=== PATIENT | male | born 1940 | race Caucasian/White ===

== ENCOUNTER 2016-11-23 23:02 | Emergency (ER) | payer OTHER ==
[~2016-11-23 23:02] MED LIST: Sodium Chloride 0.9% 100 ML BAG ONE
[2016-11-23] MEDS ORDERED: Ondansetron HCl/PF 4 MG/2 ML Vial ONE (23:32)
[2016-11-23 23:42] LABS: #Basophils 0.1 thou/uL (0.0-0.2); #Eosinphils 0.1 thou/uL (0.0-0.7); #Lymphocytes 1.1 thou/uL (1.20-3.40); #Monocytes 0.5 thou/uL (0.11-0.59); #Neutrophils 2.7 thou/uL (1.40-6.50); %Eosinophils 2.5 % (0.0-10.0); %Lymphocytes 24.7 % (21.0-51.0); %Monocytes 10.6 % (0.0-10.0); %Neutrophils 60.2 % (42.0-75.0); Hemoglobin 13.6 g/dL (14.0-18.0); Mean Corpuscular HGB CONC 35.2 g/dL (32.0-36.0); Mean Corpuscular Hemoglobin 30.1 pg (27.0-31.0); Mean Corpuscular Volume 85.7 fl (80.0-94.0); Mean Platelet Volume 9.7 fL (7.4-10.4); Platelet Count 126 thou/uL (130-400); RBC Distribution Width 11.9 % (11.5-14.5); White Blood Cell (WBC) Count 4.5 thou/uL (4.8-10.8)
[2016-11-23 23:48] LABS: INR-International Normal Ratio 2.3; PTT 38.3 SEC (22.9-36.1); Prothrombin Time 24.9 SEC (12.0-14.7)
--- NOTE | 2016-11-23 23:49 | RAD ---
CHEST ONE VIEW 11/23/16 HISTORY: Dyspnea. FINDINGS: No comparison. The cardiac silhouette is magnified and partially obscured by an elevated right hemidiaphragm and pa tchy infiltrate at the right lung base. Pulmonary vasculature is unremarkable. Mediastinum remains m idline with postoperative changes apparent. IMPRESSION: Right hemidiaphragm elevation with mild atelectasis or infiltrate at the right lung base. The appear ance is similar to the prior CT from 11/07/16. Clinical correlation regarding other signs and symptom s of right basilar pneumonitis is required. POS: [facility]
[2016-11-23 23:57] LABS: Troponin I 0.014 ng/mL (< 0.028)
[2016-11-23 23:58] LABS: ALT (SGPT) 24 U/L (0-55); AST (SGOT) 22 U/L (5-34); Albumin 3.8 g/dL (3.4-4.8); Alkaline Phosphatase 113 U/L (40-150); Anion Gap 14 mmol/L (10-20); BUN (Urea Nitrogen) 16 mg/dL (8.4-25.7); Bilirubin, Total 1.2 mg/dL (0.2-1.2); CK (CPK) 96 U/L (30-200); Calc. Creatinine Clearance 0 mL/min (70-130); Calcium 8.8 mg/dL (7.8-10.44); Carbon Dioxide 28 mmol/L (23-31); Chloride 103 mmol/L (98-107); Estimated GFR-MDRD Greater than 90; Globulin 2.5 g/dL (2.4-3.5); Glucose 109 mg/dL (83-110); Magnesium 2.1 mg/dL (1.6-2.6); Potassium 3.8 mmol/L (3.5-5.1); Protein, Total 6.3 g/dL (5.8-8.1); Sodium 141 mmol/L (136-145)
[2016-11-24] MEDS ORDERED: Doxycycline Hyclate 100 MG TAB ONE (00:22)
[2016-11-24] MEDS ORDERED: Doxycycline 100 MG CAP ONE (00:22)
[2016-11-24] MEDS ORDERED: cefTRIAXone\\ROCEPHIN 1 GM VIAL ONE (00:23)
[2016-11-24] MEDS ORDERED: Clindamycin 150 MG CAP ONE (00:23)
[2016-11-24] MEDS ORDERED: Benzonatate 100 MG CAP ONE (01:14)
== END 2016-11-24 01:30 | disposition home or self-care (01) ==
LOC: MADERS 23:02
DX: J18.9 Pneumonia, unspecified organism (principal); J44.9 Chronic obstructive pulmonary disease, unspecified; E78.00 Pure hypercholesterolemia, unspecified; I10 Essential (primary) hypertension; Z87.891 Personal history of nicotine dependence; Z95.2 Presence of prosthetic heart valve; Z79.01 Long term (current) use of anticoagulants; Z79.899 Other long term (current) drug therapy
CPT/HCPCS: 36415; 71010; 80053; 82550; 82553; 83735; 83880; 84484; 85025; 85610; 85730; 87040; 93005; 94640; 94760; 96365; 96375; J0696; J2405; J7050; J7620

== ENCOUNTER 2016-12-20 15:51 | Outpatient (CLI) | payer MEDICARE, OTHER ==
[2016-12-20 16:14] LABS: #Eosinphils 0.1 thou/uL (0.0-0.7); #Lymphocytes 0.9 thou/uL (1.20-3.40); #Monocytes 0.3 thou/uL (0.11-0.59); #Neutrophils 2.4 thou/uL (1.40-6.50); %Basophils 1.1 % (0.0-1.0); %Eosinophils 2.8 % (0.0-10.0); %Lymphocytes 24.3 % (21.0-51.0); %Monocytes 7.5 % (0.0-10.0); %Neutrophils 64.4 % (42.0-75.0); Hemoglobin 14.3 g/dL (14.0-18.0); Mean Corpuscular HGB CONC 34.8 g/dL (32.0-36.0); Mean Corpuscular Hemoglobin 30.4 pg (27.0-31.0); Mean Corpuscular Volume 87.2 fl (80.0-94.0); Mean Platelet Volume 9.6 fL (7.4-10.4); Platelet Count 126 thou/uL (130-400); RBC Distribution Width 12.3 % (11.5-14.5); Red Blood Cell (RBC) Count 4.72 mill/uL (4.70-6.10); White Blood Cell (WBC) Count 3.7 thou/uL (4.8-10.8)
[2016-12-20 16:21] LABS: INR-International Normal Ratio 1.1
[2016-12-20 16:22] LABS: PTT 40.7 SEC (22.9-36.1)
[2016-12-20 16:27] LABS: Bilirubin Negative (Negative); Blood, Urine Moderate (Negative); Clarity Cloudy (Clear); Glucose, Urine (Dipstick) Negative (Negative); Leukocyte Negative (Negative); Nitrite Negative (Negative); Protein, Urine (Dipstick) 30 mg/dL (Neg-Trace); Urobilinogen 0.2 mg/dL (0.2-1.0)
[2016-12-20 16:28] LABS: RBC/HPF GREATER THAN 50-TNTC HPF (0-3)
[2016-12-20 16:30] LABS: Bacteria/HPF Rare-Few HPF (None Seen); Squamous Epithelial 0-3 HPF (0-3)
== END 2016-12-20 15:52 | disposition home or self-care (01) ==
LOC: MADLABBHPM 15:51
PROVIDERS: ATTEND Family Medicine
DX: R31.9 Hematuria, unspecified (principal); Z95.2 Presence of prosthetic heart valve; Z79.01 Long term (current) use of anticoagulants
CPT/HCPCS: 36415; 81001; 85025; 85610; 85730; 87086

== ENCOUNTER 2016-12-27 08:56 | Outpatient (CLI) | payer MEDICARE, OTHER ==
[2016-12-27 09:21] LABS: INR-International Normal Ratio 1.2
== END 2016-12-27 08:57 ==
LOC: MADLABBHPM 08:56
PROVIDERS: ATTEND Family Medicine
DX: Z51.81 Encounter for therapeutic drug level monitoring (principal); Z79.01 Long term (current) use of anticoagulants
CPT/HCPCS: 36415; 85610

== ENCOUNTER 2017-01-04 06:27 | Outpatient (CLI) | payer OTHER ==
[2017-01-04 07:14] LABS: INR-International Normal Ratio 1.7; Prothrombin Time 19.8 SEC (12.0-14.7)
== END 2017-01-04 06:28 ==
LOC: MADLABBHPM 06:27
PROVIDERS: ATTEND Family Medicine
DX: Z51.81 Encounter for therapeutic drug level monitoring (principal); Z79.01 Long term (current) use of anticoagulants
CPT/HCPCS: 36415; 85610

== ENCOUNTER 2017-01-11 16:01 | Outpatient (CLI) | payer OTHER ==
[2017-01-11 16:22] LABS: INR-International Normal Ratio 1.5
== END 2017-01-11 16:02 | disposition home or self-care (01) ==
LOC: MADLABBHPM 16:01
PROVIDERS: ATTEND Family Medicine
DX: Z51.81 Encounter for therapeutic drug level monitoring (principal); Z79.01 Long term (current) use of anticoagulants
CPT/HCPCS: 36415; 85610

== ENCOUNTER 2017-01-25 07:20 | Emergency (ER) | payer OTHER ==
[~2017-01-25 07:20] MED LIST changes: +Sodium Chloride 0.9% 1,000 ML BAG ONE; -Sodium Chloride 0.9% 100 ML BAG ONE; +Sterile Water Irrigation 1,000 ML BOT ONE
[2017-01-25 08:18] LABS: #Eosinphils 0.1 thou/uL (0.0-0.7); #Monocytes 0.4 thou/uL (0.11-0.59); #Neutrophils 4.1 thou/uL (1.40-6.50); %Basophils 0.9 % (0.0-1.0); %Eosinophils 2.6 % (0.0-10.0); %Lymphocytes 17.7 % (21.0-51.0); %Monocytes 6.7 % (0.0-10.0); %Neutrophils 72.2 % (42.0-75.0); Hemoglobin 13.4 g/dL (14.0-18.0); Mean Corpuscular HGB CONC 33.4 g/dL (32.0-36.0); Mean Corpuscular Hemoglobin 29.8 pg (27.0-31.0); Mean Corpuscular Volume 89.3 fl (80.0-94.0); Mean Platelet Volume 9.1 fL (7.4-10.4); Platelet Count 132 thou/uL (130-400); White Blood Cell (WBC) Count 5.6 thou/uL (4.8-10.8)
[2017-01-25 08:22] LABS: PTT 40.4 SEC (22.9-36.1); Prothrombin Time 13.6 SEC (12.0-14.7)
[2017-01-25 08:29] LABS: Anion Gap 13 mmol/L (10-20); BUN (Urea Nitrogen) 13 mg/dL (8.4-25.7); Calc. Creatinine Clearance 0 mL/min (70-130); Calcium 8.5 mg/dL (7.8-10.44); Carbon Dioxide 26 mmol/L (23-31); Chloride 105 mmol/L (98-107); Estimated GFR-MDRD Greater than 90; Glucose 94 mg/dL (83-110); Potassium 3.8 mmol/L (3.5-5.1); Sodium 140 mmol/L (136-145)
[2017-01-25 08:57] LABS: CKMB 3.3 ng/mL (0-6.6); Troponin I Less than 0.010 ng/mL (< 0.028)
== END 2017-01-25 09:45 | disposition short-term general hospital (02) ==
LOC: MADERS 07:20
DX: R31.0 Gross hematuria (principal); R55 Syncope and collapse; R00.1 Bradycardia, unspecified; I25.10 Atherosclerotic heart disease of native coronary artery without angina pectoris; I10 Essential (primary) hypertension; J44.9 Chronic obstructive pulmonary disease, unspecified; E78.00 Pure hypercholesterolemia, unspecified; Z87.891 Personal history of nicotine dependence; Z79.899 Other long term (current) drug therapy
CPT/HCPCS: 80048; 82550; 82553; 84484; 85025; 85610; 85730; 93005; A4217; J7050

== ENCOUNTER 2017-02-04 06:18 | Emergency (ER) | payer OTHER ==
[2017-02-04 07:24] LABS: Bilirubin Negative (Negative); Blood, Urine Moderate (Negative); Glucose, Urine (Dipstick) Negative (Negative); Leukocyte Negative (Negative); Nitrite Negative (Negative); Protein, Urine (Dipstick) 100 mg/dL (Neg-Trace); Specific Gravity, Urine 1.025 (1.005-1.030); Urobilinogen 0.2 mg/dL (0.2-1.0)
[2017-02-04 07:31] LABS: Clarity Turbid (Clear)
[2017-02-04 07:32] LABS: Bacteria/HPF 1+ HPF (None Seen); RBC/HPF GREATER THAN 50-TNTC HPF (0-3)
[2017-02-04 08:13] LABS: #Lymphocytes 0.5 thou/uL (1.20-3.40); #Monocytes 0.2 thou/uL (0.11-0.59); #Neutrophils 2.8 thou/uL (1.40-6.50); %Basophils 1.1 % (0.0-1.0); %Eosinophils 1.2 % (0.0-10.0); %Lymphocytes 15.1 % (21.0-51.0); %Monocytes 5.1 % (0.0-10.0); %Neutrophils 77.6 % (42.0-75.0); Hemoglobin 11.6 g/dL (14.0-18.0); Mean Corpuscular HGB CONC 34.4 g/dL (32.0-36.0); Mean Corpuscular Volume 87.3 fl (80.0-94.0); Mean Platelet Volume 8.5 fL (7.4-10.4); Platelet Count 132 thou/uL (130-400); RBC Distribution Width 11.6 % (11.5-14.5); Red Blood Cell (RBC) Count 3.88 mill/uL (4.70-6.10); White Blood Cell (WBC) Count 3.6 thou/uL (4.8-10.8)
[2017-02-04] MEDS ORDERED: Amoxicillin/Potassium Clav 875 MG TAB ONE (08:27)
== END 2017-02-04 08:33 | disposition home or self-care (01) ==
LOC: MADERS 06:18
DX: N39.0 Urinary tract infection, site not specified (principal); R31.9 Hematuria, unspecified; I10 Essential (primary) hypertension; E78.00 Pure hypercholesterolemia, unspecified; J44.9 Chronic obstructive pulmonary disease, unspecified; Z87.891 Personal history of nicotine dependence
CPT/HCPCS: 36415; 81003; 81015; 85025; 87086; 99283

== ENCOUNTER 2017-02-05 08:23 | Emergency (ER) | payer OTHER ==
[2017-02-05] MEDS ORDERED: Lidocaine 2% Jelly 5 ML TUBE ONE (09:19)
[2017-02-05 09:59] LABS: Bilirubin Negative (Negative); Blood, Urine Large (Negative); Clarity Turbid (Clear); Glucose, Urine (Dipstick) Negative (Negative); Leukocyte Negative (Negative); Nitrite Negative (Negative); Protein, Urine (Dipstick) > or equal to 300 mg/dL (Neg-Trace); Specific Gravity, Urine 1.025 (1.005-1.030); Urobilinogen 0.2 mg/dL (0.2-1.0)
[2017-02-05 10:07] LABS: Bacteria/HPF 2+ HPF (None Seen); RBC/HPF GREATER THAN 50-TNTC HPF (0-3); Renal Epithelial 0-3 HPF (0-3); Transitional Epithelial 0-3 HPF (0-3); WBC/HPF 21-50 HPF (0-3)
== END 2017-02-05 10:05 | disposition home or self-care (01) ==
LOC: MADERS 08:23
DX: R33.9 Retention of urine, unspecified (principal); I10 Essential (primary) hypertension; I25.10 Atherosclerotic heart disease of native coronary artery without angina pectoris; J44.9 Chronic obstructive pulmonary disease, unspecified; E78.00 Pure hypercholesterolemia, unspecified; Z87.891 Personal history of nicotine dependence; Z79.2 Long term (current) use of antibiotics; Z79.899 Other long term (current) drug therapy
CPT/HCPCS: 51703; 81001; 87086

== ENCOUNTER 2017-02-20 06:02 | Outpatient (CLI) | payer OTHER ==
[2017-02-20 07:02] LABS: INR-International Normal Ratio 2.5; Prothrombin Time 26.8 SEC (12.0-14.7)
[2017-02-20 10:41] LABS: PTT 49.9 SEC (22.9-36.1)
[2017-02-20 10:53] LABS: #Lymphocytes 0.4 thou/uL (1.20-3.40); #Monocytes 0.3 thou/uL (0.11-0.59); %Eosinophils 0.5 % (0.0-10.0); %Lymphocytes 9.3 % (21.0-51.0); %Monocytes 5.7 % (0.0-10.0); %Neutrophils 83.6 % (42.0-75.0); Hemoglobin 9.6 g/dL (14.0-18.0); Mean Corpuscular HGB CONC 33.4 g/dL (32.0-36.0); Mean Corpuscular Hemoglobin 28.6 pg (27.0-31.0); Mean Corpuscular Volume 85.8 fl (80.0-94.0); Mean Platelet Volume 8.1 fL (7.4-10.4); Platelet Count 165 thou/uL (130-400); RBC Distribution Width 12.3 % (11.5-14.5); Red Blood Cell (RBC) Count 3.36 mill/uL (4.70-6.10); White Blood Cell (WBC) Count 4.7 thou/uL (4.8-10.8)
== END 2017-02-20 06:03 | disposition home or self-care (01) ==
LOC: MADLAB 06:02
PROVIDERS: ATTEND Family Medicine
DX: Z51.81 Encounter for therapeutic drug level monitoring (principal); Z79.01 Long term (current) use of anticoagulants
CPT/HCPCS: 36415; 84153; 85025; 85610; 85730

== ENCOUNTER 2017-02-27 06:02 | Outpatient (CLI) | payer OTHER ==
[2017-02-27 09:07] LABS: INR-International Normal Ratio 4.5; PTT 48.5 SEC (22.9-36.1)
== END 2017-02-27 06:03 ==
LOC: MADLABBHPM 06:02
PROVIDERS: ATTEND Family Medicine
DX: Z51.81 Encounter for therapeutic drug level monitoring (principal); Z79.01 Long term (current) use of anticoagulants
CPT/HCPCS: 85610; 85730

== ENCOUNTER 2017-03-02 10:55 | Outpatient (CLI) | payer OTHER ==
[2017-03-02 11:24] LABS: INR-International Normal Ratio 1.5; Prothrombin Time 18.1 SEC (12.0-14.7)
== END 2017-03-02 10:56 | disposition home or self-care (01) ==
LOC: MADLABBHPM 10:55
PROVIDERS: ATTEND Family Medicine
DX: Z51.81 Encounter for therapeutic drug level monitoring (principal); Z79.01 Long term (current) use of anticoagulants
CPT/HCPCS: 36415; 85610

== ENCOUNTER 2017-03-07 06:54 | Outpatient (CLI) | payer OTHER ==
[2017-03-07 07:16] LABS: Prothrombin Time 13.9 SEC (12.0-14.7)
== END 2017-03-07 06:55 ==
LOC: MADLABBHPM 06:54
PROVIDERS: ATTEND Family Medicine
DX: D50.0 Iron deficiency anemia secondary to blood loss (chronic) (principal); Z79.01 Long term (current) use of anticoagulants
CPT/HCPCS: 36415

== ENCOUNTER 2017-03-14 07:24 | Outpatient (CLI) | payer OTHER ==
[2017-03-14 08:27] LABS: INR-International Normal Ratio 1.4; Prothrombin Time 17.4 SEC (12.0-14.7)
== END 2017-03-14 07:25 | disposition home or self-care (01) ==
LOC: MADLABBHPM 07:24
PROVIDERS: ATTEND Family Medicine
DX: Z51.81 Encounter for therapeutic drug level monitoring (principal); Z79.01 Long term (current) use of anticoagulants
CPT/HCPCS: 36415; 85610

== ENCOUNTER 2017-03-23 06:38 | Outpatient (CLI) | payer OTHER ==
[2017-03-23 09:25] LABS: INR-International Normal Ratio 2.1; Prothrombin Time 23.6 SEC (12.0-14.7)
== END 2017-03-23 06:39 | disposition home or self-care (01) ==
LOC: MADLAB 06:38
PROVIDERS: ATTEND Family Medicine
DX: Z51.81 Encounter for therapeutic drug level monitoring (principal); Z79.01 Long term (current) use of anticoagulants
CPT/HCPCS: 85610

== ENCOUNTER 2017-03-31 07:29 | Outpatient (CLI) | payer OTHER ==
[2017-03-31 08:19] LABS: INR-International Normal Ratio 2.6; Prothrombin Time 27.6 SEC (12.0-14.7)
== END 2017-03-31 07:30 | disposition home or self-care (01) ==
LOC: MADLABBHPM 07:29
PROVIDERS: ATTEND Family Medicine
DX: Z51.81 Encounter for therapeutic drug level monitoring (principal); Z79.01 Long term (current) use of anticoagulants
CPT/HCPCS: 36415; 85610

== ENCOUNTER 2017-04-07 14:19 | Outpatient (CLI) | payer OTHER ==
[2017-04-07 14:22] LABS: INR-International Normal Ratio 3.3; Prothrombin Time 33.2 SEC (12.0-14.7)
== END 2017-04-07 14:20 | disposition home or self-care (01) ==
LOC: MADLABBHPM 14:19
PROVIDERS: ATTEND Family Medicine
DX: Z51.81 Encounter for therapeutic drug level monitoring (principal); Z79.01 Long term (current) use of anticoagulants
CPT/HCPCS: 36415; 85610

== ENCOUNTER 2017-04-11 12:04 | Outpatient (CLI) | payer OTHER ==
[2017-04-11 12:50] LABS: INR-International Normal Ratio 2.5
== END 2017-04-11 12:05 | disposition home or self-care (01) ==
LOC: MADLABBHPM 12:04
PROVIDERS: ATTEND Family Medicine
DX: Z51.81 Encounter for therapeutic drug level monitoring (principal); Z79.01 Long term (current) use of anticoagulants
CPT/HCPCS: 36415; 85610

== ENCOUNTER 2017-04-14 09:58 | Outpatient (CLI) | payer OTHER ==
[2017-04-14 11:03] LABS: ALT (SGPT) 55 U/L (8-55); AST (SGOT) 28 U/L (5-34); Albumin 3.9 g/dL (3.4-4.8); Alkaline Phosphatase 112 U/L (40-150); Anion Gap 15 mmol/L (10-20); BUN (Urea Nitrogen) 21 mg/dL (8.4-25.7); Bilirubin, Direct 0.2 mg/dL (0.1-0.3); Bilirubin, Total 0.5 mg/dL (0.2-1.2); Calc. Creatinine Clearance 0 mL/min (70-130); Calcium 8.7 mg/dL (7.8-10.44); Carbon Dioxide 26 mmol/L (23-31); Cardiac Risk 3.5 (Less than 4.5); Chloride 104 mmol/L (98-107); Cholesterol 140 mg/dl (< 200 Desired); Estimated GFR-MDRD Greater than 90; Glucose 106 mg/dL (83-110); HDL Cholesterol 40 mg/dL (>60 Neg Risk); LDL Cholesterol, Calculated 84 mg/dL; Potassium 3.7 mmol/L (3.5-5.1); Protein, Total 6.7 g/dL (5.8-8.1); Sodium 141 mmol/L (136-145); Triglycerides 80 mg/dL (Less than 150)
[2017-04-14 11:40] LABS: Clarity Slightly Cloudy (Clear); Leukocyte Negative (Negative); Nitrite Negative (Negative); Protein, Urine (Dipstick) Negative (Neg-Trace); Specific Gravity, Urine 1.015 (1.005-1.030)
[2017-04-14 11:41] LABS: Bacteria/HPF Rare-Few HPF (None Seen); Bilirubin Negative (Negative); Blood, Urine Large (Negative); Glucose, Urine (Dipstick) Negative (Negative); INR-International Normal Ratio 2.1; Prothrombin Time 23.4 SEC (12.0-14.7); RBC/HPF GREATER THAN 50-TNTC HPF (0-3); Squamous Epithelial 0-3 HPF (0-3); Urobilinogen 0.2 mg/dL (0.2-1.0); WBC/HPF 0-3 HPF (0-3)
[2017-04-14 12:14] LABS: #Basophils 0.1 thou/uL (0.0-0.2); #Eosinphils 0.1 thou/uL (0.0-0.7); #Monocytes 0.3 thou/uL (0.11-0.59); #Neutrophils 4.3 thou/uL (1.40-6.50); %Basophils 1.4 % (0.0-1.0); %Eosinophils 1.5 % (0.0-10.0); %Lymphocytes 17.2 % (21.0-51.0); %Monocytes 5.5 % (0.0-10.0); %Neutrophils 74.4 % (42.0-75.0); Anisocytosis SLIGHT = 6-15 cells (100X) (0-5/hpf); Elliptocytes SLIGHT = 2-5 cells (100X) (0-1/hpf); Hemoglobin 11.4 g/dL (14.0-18.0); Hypochromia SLIGHT = 6-15 cells (100X) (0-5/hpf); MDiff Complete? YES; Mean Corpuscular Hemoglobin 23.5 pg (27.0-31.0); Mean Platelet Volume 7.4 fL (7.4-10.4); Microcytosis SLIGHT = 6-15 cells (100X) (0-5/hpf); Platelet Count 223 thou/uL (130-400); Poikilocytosis SLIGHT = 6-15 cells (100X) (0-5/hpf); Red Blood Cell (RBC) Count 4.84 mill/uL (4.70-6.10); White Blood Cell (WBC) Count 5.8 thou/uL (4.8-10.8)
== END 2017-04-14 09:59 | disposition home or self-care (01) ==
LOC: MADLABBHPM 09:58
PROVIDERS: ATTEND Family Medicine
DX: R31.9 Hematuria, unspecified (principal); E78.2 Mixed hyperlipidemia; E66.3 Overweight; I10 Essential (primary) hypertension
CPT/HCPCS: 36415; 80048; 80061; 80076; 81001; 85025; 85610; 87086

== ENCOUNTER 2017-04-18 10:23 | Outpatient (CLI) | payer OTHER ==
[2017-04-18 10:33] LABS: Prothrombin Time 13.9 SEC (12.0-14.7)
== END 2017-04-18 10:24 | disposition home or self-care (01) ==
LOC: MADLAB 10:23
PROVIDERS: ATTEND Family Medicine
DX: Z51.81 Encounter for therapeutic drug level monitoring (principal); Z79.01 Long term (current) use of anticoagulants; Z79.82 Long term (current) use of aspirin
CPT/HCPCS: 36415; 85610

== ENCOUNTER 2017-04-24 15:19 | Outpatient (CLI) | payer OTHER ==
[2017-04-24 15:38] LABS: INR-International Normal Ratio 1.5; Prothrombin Time 18.5 SEC (12.0-14.7)
== END 2017-04-24 15:20 | disposition home or self-care (01) ==
LOC: MADLABBHPM 15:19
PROVIDERS: ATTEND Family Medicine
DX: Z51.81 Encounter for therapeutic drug level monitoring (principal); Z79.01 Long term (current) use of anticoagulants
CPT/HCPCS: 85610

== ENCOUNTER 2017-05-01 12:47 | Outpatient (CLI) | payer OTHER ==
[2017-05-01 14:26] LABS: INR-International Normal Ratio 2.1; Prothrombin Time 23.3 SEC (12.0-14.7)
== END 2017-05-01 12:48 | disposition home or self-care (01) ==
LOC: MADLABBHPM 12:47
PROVIDERS: ATTEND Family Medicine
DX: Z51.81 Encounter for therapeutic drug level monitoring (principal); Z79.01 Long term (current) use of anticoagulants; Z95.2 Presence of prosthetic heart valve
CPT/HCPCS: 85610

== ENCOUNTER 2017-05-22 12:26 | Outpatient (CLI) | payer OTHER ==
[2017-05-22 13:22] LABS: INR-International Normal Ratio 1.1; Prothrombin Time 14.6 SEC (12.0-14.7)
== END 2017-05-22 12:27 | disposition home or self-care (01) ==
LOC: MADLABBHPM 12:26
PROVIDERS: ATTEND Family Medicine
DX: Z51.81 Encounter for therapeutic drug level monitoring (principal); Z79.01 Long term (current) use of anticoagulants
CPT/HCPCS: 36415; 85610

== ENCOUNTER 2017-05-31 13:57 | Outpatient (CLI) | payer OTHER ==
[2017-05-31 14:27] LABS: INR-International Normal Ratio 1.9
== END 2017-05-31 13:58 | disposition home or self-care (01) ==
LOC: MADLAB 13:57
PROVIDERS: ATTEND Family Medicine
DX: Z51.81 Encounter for therapeutic drug level monitoring (principal); Z79.01 Long term (current) use of anticoagulants
CPT/HCPCS: 36415; 85610

== ENCOUNTER 2017-06-08 08:38 | Outpatient (CLI) | payer OTHER ==
[2017-06-09 08:30] LABS: INR-International Normal Ratio 1.9; Prothrombin Time 22.4 SEC (12.0-14.7)
== END 2017-06-08 08:39 | disposition home or self-care (01) ==
LOC: MADLABBHPM 08:38
PROVIDERS: ATTEND Family Medicine
DX: Z51.81 Encounter for therapeutic drug level monitoring (principal); Z95.2 Presence of prosthetic heart valve; Z79.01 Long term (current) use of anticoagulants
CPT/HCPCS: 36415; 85610

== ENCOUNTER 2017-06-22 07:22 | Outpatient (CLI) | payer OTHER ==
[2017-06-22 08:27] LABS: INR-International Normal Ratio 2.5; Prothrombin Time 27.9 SEC (12.0-14.7)
--- NOTE | 2017-06-22 11:13 | RAD ---
LEFT SHOULDER THREE VIEWS: History: Left shoulder pain. FINDINGS: Acromioclavicular and glenohumeral alignment are maintained. No acute fracture, dislocation, or betty s osseous erosions are evident. IMPRESSION: No acute osseous abnormalities are demonstrated. POS: [facility]
== END 2017-06-22 07:23 | disposition home or self-care (01) ==
LOC: MADLABBHPM 07:22
PROVIDERS: ATTEND Family Medicine
DX: Z51.81 Encounter for therapeutic drug level monitoring (principal); M25.512 Pain in left shoulder; R31.9 Hematuria, unspecified; Z95.2 Presence of prosthetic heart valve; Z79.01 Long term (current) use of anticoagulants
CPT/HCPCS: 36415; 85610; 87086

== ENCOUNTER 2017-08-17 15:56 | Outpatient (CLI) | payer OTHER ==
[2017-08-17 16:24] LABS: INR-International Normal Ratio 2.2; Prothrombin Time 25.5 SEC (12.0-14.7)
== END 2017-08-17 15:57 | disposition home or self-care (01) ==
LOC: MADLABBHPM 15:56
PROVIDERS: ATTEND Family Medicine
DX: Z51.81 Encounter for therapeutic drug level monitoring (principal); Z79.01 Long term (current) use of anticoagulants
CPT/HCPCS: 36415; 85610

== ENCOUNTER 2017-09-21 07:01 | Outpatient (CLI) | payer OTHER ==
[2017-09-21 08:48] LABS: INR-International Normal Ratio 1.4; Prothrombin Time 17.2 SEC (12.0-14.7)
[2017-09-21 08:56] LABS: ALT (SGPT) 21 U/L (8-55); AST (SGOT) 18 U/L (5-34); Albumin 3.9 g/dL (3.4-4.8); Alkaline Phosphatase 152 U/L (40-150); Anion Gap 15 mmol/L (10-20); BUN (Urea Nitrogen) 19 mg/dL (8.4-25.7); Bilirubin, Direct 0.2 mg/dL (0.1-0.3); Bilirubin, Total 0.5 mg/dL (0.2-1.2); Calc. Creatinine Clearance 0 mL/min (70-130); Calcium 8.8 mg/dL (7.8-10.44); Carbon Dioxide 29 mmol/L (23-31); Cardiac Risk 4.3 (Less than 4.5); Chloride 103 mmol/L (98-107); Cholesterol 149 mg/dl (< 200 Desired); Estimated GFR-MDRD 89; Glucose 102 mg/dL (83-110); HDL Cholesterol 35 mg/dL (>60 Neg Risk); LDL Cholesterol, Calculated 71 mg/dL; Potassium 3.9 mmol/L (3.5-5.1); Protein, Total 6.7 g/dL (5.8-8.1); Sodium 143 mmol/L (136-145); Triglycerides 216 mg/dL (Less than 150)
== END 2017-09-21 07:02 | disposition home or self-care (01) ==
LOC: MADLAB 07:01
PROVIDERS: ATTEND Internal Medicine Cardiovascular Disease
DX: Z51.81 Encounter for therapeutic drug level monitoring (principal); E78.2 Mixed hyperlipidemia; E66.8 Other obesity; I10 Essential (primary) hypertension; Z95.2 Presence of prosthetic heart valve; Z79.01 Long term (current) use of anticoagulants
CPT/HCPCS: 36415; 80048; 80061; 80076

== ENCOUNTER 2018-01-15 08:05 | Outpatient (CLI) | payer OTHER ==
[2018-01-15 10:30] LABS: INR-International Normal Ratio 2.6; PTT 41.1 SEC (22.9-36.1); Prothrombin Time 28.6 SEC (12.0-14.7)
== END 2018-01-15 08:06 | disposition home or self-care (01) ==
LOC: MADLABBHPM 08:05
PROVIDERS: ATTEND Family Medicine
DX: C61 Malignant neoplasm of prostate (principal)
CPT/HCPCS: 36415; 85610; 85730; G0103

== ENCOUNTER 2018-01-29 14:31 | Outpatient (CLI) | payer OTHER ==
[2018-01-29 14:47] LABS: Bilirubin Negative (Negative); Blood, Urine Negative (Negative); Glucose, Urine (Dipstick) Negative (Negative); Leukocyte Negative (Negative); Nitrite Negative (Negative); Protein, Urine (Dipstick) Negative (Neg-Trace); Specific Gravity, Urine 1.015 (1.005-1.030); Urobilinogen 0.2 mg/dL (0.2-1.0)
[2018-01-29 14:53] LABS: #Basophils 0.1 thou/uL (0.0-0.2); #Eosinphils 0.1 thou/uL (0.0-0.7); #Lymphocytes 0.8 thou/uL (1.20-3.40); #Monocytes 0.4 thou/uL (0.11-0.59); #Neutrophils 3.8 thou/uL (1.40-6.50); %Basophils 1.6 % (0.0-1.0); %Eosinophils 2.4 % (0.0-10.0); %Lymphocytes 15.2 % (21.0-51.0); %Monocytes 7.7 % (0.0-10.0); %Neutrophils 73.1 % (42.0-75.0); Hemoglobin 12.6 g/dL (14.0-18.0); Mean Corpuscular HGB CONC 32.7 g/dL (32.0-36.0); Mean Corpuscular Hemoglobin 26.5 pg (27.0-31.0); Mean Corpuscular Volume 80.9 fl (80.0-94.0); Mean Platelet Volume 8.1 fL (7.4-10.4); Platelet Count 198 thou/uL (130-400); RBC Distribution Width 13.3 % (11.5-14.5); Red Blood Cell (RBC) Count 4.75 mill/uL (4.70-6.10); White Blood Cell (WBC) Count 5.2 thou/uL (4.8-10.8)
[2018-01-29 14:56] LABS: Clarity Hazy (Clear)
[2018-01-29 15:00] LABS: Bacteria/HPF Rare-Few HPF (None Seen); Crystals/HPF 4+ URIC ACID HPF (Negative); RBC/HPF None Seen HPF (0-3); Squamous Epithelial 0-3 HPF (0-3); WBC/HPF None Seen HPF (0-3)
[2018-01-29 15:01] LABS: Hyaline Casts/LPF >50 HYALINE CAST LPF (0-3 Hyaline)
[2018-01-29 15:19] LABS: ALT (SGPT) 23 U/L (8-55); AST (SGOT) 19 U/L (5-34); Albumin 3.9 g/dL (3.4-4.8); Alkaline Phosphatase 135 U/L (40-150); Anion Gap 17 mmol/L (10-20); BUN (Urea Nitrogen) 19 mg/dL (8.4-25.7); Bilirubin, Total 0.7 mg/dL (0.2-1.2); Calc. Creatinine Clearance 0 mL/min (70-130); Calcium 9.2 mg/dL (7.8-10.44); Carbon Dioxide 26 mmol/L (23-31); Chloride 102 mmol/L (98-107); Estimated GFR-MDRD 79; Glucose 144 mg/dL (83-110); Potassium 3.3 mmol/L (3.5-5.1); Protein, Total 6.9 g/dL (5.8-8.1); Sodium 142 mmol/L (136-145)
--- NOTE | 2018-01-29 15:37 | RAD ---
CHEST PA AND LATERAL: History: 77-year-old male with history of shortness of breath. Comparison: 11-13-17 FINDINGS: Post underlying sternotomy and valve replacement changes. Atherosclerosis of the aorta with some ecta gianna. Old granulomatous disease. Stable right hemidiaphragm elevation. No confluent pneumonia, overt e candy, or pleural effusion or other acute process. IMPRESSION: Post underlying sternotomy and valve replacement changes. Atherosclerosis of the aorta with ectasia. Stable right hemidiaphragm elevation. No significant change from prior exam. POS: [facility]
--- NOTE | 2018-01-29 15:58 | RAD ---
LUMBAR SPINE SERIES THREE VIEWS: History: Low back pain. FINDINGS: Vertebral bodies are normal in height. There is minimal scoliotic change, convex left. There are dege nerative changes and some minimal disc narrowing at L2-3 and L3-4, also degenerative osteophytes at L 4-5 and L5-S1. Pedicles are intact. IMPRESSION: Mild arthritic changes of the spine and minimal levoscoliosis. POS: [facility]
== END 2018-01-29 14:32 | disposition home or self-care (01) ==
LOC: MADLABBHPM 14:31
PROVIDERS: ATTEND Family Medicine
DX: Z51.81 Encounter for therapeutic drug level monitoring (principal); R06.02 Shortness of breath; M54.5 Low back pain; M47.896 Other spondylosis, lumbar region; M41.9 Scoliosis, unspecified; I70.0 Atherosclerosis of aorta; I77.819 Aortic ectasia, unspecified site; J98.6 Disorders of diaphragm; Z79.01 Long term (current) use of anticoagulants
CPT/HCPCS: 36415; 71046; 72100; 80053; 81001; 85025

== ENCOUNTER 2018-02-12 06:58 | Outpatient (CLI) | payer OTHER ==
[2018-02-12 08:45] LABS: PTT 35.4 SEC (22.9-36.1)
[2018-02-12 08:46] LABS: Prothrombin Time 23.7 SEC (12.0-14.7)
== END 2018-02-12 06:59 | disposition home or self-care (01) ==
LOC: MADLAB 06:58
PROVIDERS: ATTEND Family Medicine
DX: Z51.81 Encounter for therapeutic drug level monitoring (principal); Z79.01 Long term (current) use of anticoagulants
CPT/HCPCS: 36415; 85610; 85730

== ENCOUNTER 2018-03-14 08:22 | Outpatient (CLI) | payer OTHER ==
[2018-03-14 08:42] LABS: PTT 34.3 SEC (22.9-36.1); Prothrombin Time 22.9 SEC (12.0-14.7)
== END 2018-03-14 08:23 | disposition home or self-care (01) ==
LOC: MADLABBHPM 08:22
PROVIDERS: ATTEND Family Medicine
DX: Z51.81 Encounter for therapeutic drug level monitoring (principal); Z95.2 Presence of prosthetic heart valve; Z79.01 Long term (current) use of anticoagulants
CPT/HCPCS: 36415; 85610; 85730

== ENCOUNTER 2018-04-10 07:10 | Outpatient (CLI) | payer OTHER ==
[2018-04-10 08:17] LABS: INR-International Normal Ratio 1.5; Prothrombin Time 18.4 SEC (12.0-14.7)
== END 2018-04-10 07:11 | disposition home or self-care (01) ==
LOC: MADLABBHPM 07:10
PROVIDERS: ATTEND Urology
DX: Z51.81 Encounter for therapeutic drug level monitoring (principal); C61 Malignant neoplasm of prostate; Z79.01 Long term (current) use of anticoagulants
CPT/HCPCS: 36415; 84153; 85610; 85730

== ENCOUNTER 2018-05-14 07:47 | Outpatient (CLI) | payer OTHER ==
[2018-05-14 08:26] LABS: INR-International Normal Ratio 1.5; Prothrombin Time 18.3 SEC (12.0-14.7)
[2018-05-14 08:27] LABS: PTT 34.5 SEC (22.9-36.1)
== END 2018-05-14 07:48 | disposition home or self-care (01) ==
LOC: MADLABBHPM 07:47
PROVIDERS: ATTEND Family Medicine
DX: Z51.81 Encounter for therapeutic drug level monitoring (principal); Z79.01 Long term (current) use of anticoagulants
CPT/HCPCS: 36415; 85610; 85730

== ENCOUNTER 2018-05-21 07:36 | Outpatient (CLI) | payer OTHER ==
[2018-05-21 08:11] LABS: INR-International Normal Ratio 1.3; PTT 30.8 SEC (22.9-36.1); Prothrombin Time 16.7 SEC (12.0-14.7)
== END 2018-05-21 07:37 | disposition home or self-care (01) ==
LOC: MADLABBHPM 07:36
PROVIDERS: ATTEND Family Medicine
DX: Z51.81 Encounter for therapeutic drug level monitoring (principal); Z79.01 Long term (current) use of anticoagulants
CPT/HCPCS: 36415; 85610; 85730

== ENCOUNTER 2018-05-28 08:01 | Outpatient (CLI) | payer OTHER ==
[2018-05-28 09:21] LABS: INR-International Normal Ratio 1.4; Prothrombin Time 17.1 SEC (12.0-14.7)
[2018-05-28 09:22] LABS: PTT 33.3 SEC (22.9-36.1)
== END 2018-05-28 08:02 | disposition home or self-care (01) ==
LOC: MADLAB 08:01
PROVIDERS: ATTEND Family Medicine
DX: Z51.81 Encounter for therapeutic drug level monitoring (principal); Z79.01 Long term (current) use of anticoagulants
CPT/HCPCS: 36415; 85610; 85730

== ENCOUNTER 2018-06-01 07:38 | Outpatient (CLI) | payer OTHER ==
[2018-06-01 08:36] LABS: INR-International Normal Ratio 2.2; Prothrombin Time 24.3 SEC (12.0-14.7)
[2018-06-01 08:40] LABS: PTT 39.5 SEC (22.9-36.1)
== END 2018-06-01 07:39 | disposition home or self-care (01) ==
LOC: MADLAB 07:38
PROVIDERS: ATTEND Family Medicine
DX: Z51.81 Encounter for therapeutic drug level monitoring (principal); Z79.01 Long term (current) use of anticoagulants
CPT/HCPCS: 36415; 85610; 85730

== ENCOUNTER 2018-06-05 06:52 | Outpatient (CLI) | payer OTHER ==
[2018-06-05 07:29] LABS: INR-International Normal Ratio 2.7; PTT 39.7 SEC (22.9-36.1); Prothrombin Time 28.6 SEC (12.0-14.7)
== END 2018-06-05 06:53 | disposition home or self-care (01) ==
LOC: MADLAB 06:52
PROVIDERS: ATTEND Family Medicine
DX: Z51.81 Encounter for therapeutic drug level monitoring (principal); Z79.01 Long term (current) use of anticoagulants
CPT/HCPCS: 36415; 85610; 85730

== ENCOUNTER 2018-06-08 13:56 | Outpatient (CLI) | payer OTHER ==
[2018-06-08 14:26] LABS: INR-International Normal Ratio 1.1; PTT 28.3 SEC (22.9-36.1); Prothrombin Time 14.6 SEC (12.0-14.7)
== END 2018-06-08 13:57 | disposition home or self-care (01) ==
LOC: MADLAB 13:56
PROVIDERS: ATTEND Family Medicine
DX: Z51.81 Encounter for therapeutic drug level monitoring (principal); Z95.2 Presence of prosthetic heart valve; Z79.01 Long term (current) use of anticoagulants
CPT/HCPCS: 36415; 85610; 85730

== ENCOUNTER 2018-06-12 07:46 | Outpatient (CLI) | payer OTHER ==
[2018-06-12 08:22] LABS: INR-International Normal Ratio 1.7; PTT 33.9 SEC (22.9-36.1); Prothrombin Time 19.9 SEC (12.0-14.7)
== END 2018-06-12 07:47 | disposition home or self-care (01) ==
LOC: MADLAB 07:46
PROVIDERS: ATTEND Family Medicine
DX: Z51.81 Encounter for therapeutic drug level monitoring (principal); Z95.2 Presence of prosthetic heart valve; Z79.01 Long term (current) use of anticoagulants
CPT/HCPCS: 36415; 85610; 85730

== ENCOUNTER 2018-06-13 10:34 | Emergency (ER) | payer OTHER ==
[2018-06-13 11:32] LABS: #Basophils 0.1 thou/uL (0.0-0.2); #Eosinphils 0.1 thou/uL (0.0-0.7); #Lymphocytes 0.5 thou/uL (1.20-3.40); #Monocytes 0.3 thou/uL (0.11-0.59); #Neutrophils 3.1 thou/uL (1.40-6.50); %Basophils 1.9 % (0.0-1.0); %Eosinophils 1.8 % (0.0-10.0); %Lymphocytes 12.3 % (21.0-51.0); Hemoglobin 12.9 g/dL (14.0-18.0); Mean Corpuscular HGB CONC 34.4 g/dL (32.0-36.0); Mean Corpuscular Hemoglobin 28.2 pg (27.0-31.0); Mean Platelet Volume 8.6 fL (7.4-10.4); Platelet Count 125 thou/uL (130-400); RBC Distribution Width 14.5 % (11.5-14.5); Red Blood Cell (RBC) Count 4.59 mill/uL (4.70-6.10); White Blood Cell (WBC) Count 4.1 thou/uL (4.8-10.8)
[2018-06-13 11:37] LABS: INR-International Normal Ratio 1.8; PTT 36.5 SEC (22.9-36.1); Prothrombin Time 20.9 SEC (12.0-14.7)
[2018-06-13 11:45] LABS: ALT (SGPT) 21 U/L (8-55); AST (SGOT) 18 U/L (5-34); Albumin 4.1 g/dL (3.4-4.8); Alkaline Phosphatase 144 U/L (40-150); Anion Gap 13 mmol/L (10-20); BUN (Urea Nitrogen) 18 mg/dL (8.4-25.7); Bilirubin, Total 0.5 mg/dL (0.2-1.2); Calc. Creatinine Clearance 0 mL/min (70-130); Calcium 8.9 mg/dL (7.8-10.44); Carbon Dioxide 28 mmol/L (23-31); Chloride 105 mmol/L (98-107); Estimated GFR-MDRD Greater than 90; Globulin 3.1 g/dL (2.4-3.5); Glucose 108 mg/dL (83-110); Lipase 12 U/L (8-78); Potassium 3.6 mmol/L (3.5-5.1); Protein, Total 7.2 g/dL (5.8-8.1); Sodium 142 mmol/L (136-145)
[2018-06-13 12:09] LABS: Bilirubin Negative (Negative); Blood, Urine Negative (Negative); Clarity Clear (Clear); Glucose, Urine (Dipstick) Negative (Negative); Leukocyte Negative (Negative); Nitrite Negative (Negative); Protein, Urine (Dipstick) Negative (Neg-Trace); Specific Gravity, Urine 1.015 (1.005-1.030); Urobilinogen 0.2 mg/dL (0.2-1.0); pH, Urine 7.5 (5.0-9.0)
== END 2018-06-13 13:24 | disposition short-term general hospital (02) ==
LOC: MADERS 10:34
DX: K92.2 Gastrointestinal hemorrhage, unspecified (principal); Z79.01 Long term (current) use of anticoagulants; I25.10 Atherosclerotic heart disease of native coronary artery without angina pectoris; I10 Essential (primary) hypertension; J44.9 Chronic obstructive pulmonary disease, unspecified; E78.00 Pure hypercholesterolemia, unspecified; Z87.891 Personal history of nicotine dependence; Z79.899 Other long term (current) drug therapy
CPT/HCPCS: 80053; 81003; 82274; 83690; 85025; 85610; 85730; 87086; 99285

== ENCOUNTER 2018-06-19 12:14 | Outpatient (CLI) | payer OTHER, MEDICARE ==
[2018-06-19 12:49] LABS: INR-International Normal Ratio 1.9; Prothrombin Time 21.8 SEC (12.0-14.7)
[2018-06-19 12:51] LABS: #Basophils 0.1 thou/uL (0.0-0.2); #Eosinphils 0.1 thou/uL (0.0-0.7); #Lymphocytes 0.8 thou/uL (1.20-3.40); #Monocytes 0.3 thou/uL (0.11-0.59); #Neutrophils 3.2 thou/uL (1.40-6.50); %Basophils 1.4 % (0.0-1.0); %Eosinophils 2.6 % (0.0-10.0); %Lymphocytes 17.1 % (21.0-51.0); %Monocytes 6.1 % (0.0-10.0); %Neutrophils 72.8 % (42.0-75.0); Mean Corpuscular HGB CONC 33.6 g/dL (32.0-36.0); Mean Corpuscular Hemoglobin 27.9 pg (27.0-31.0); Mean Corpuscular Volume 83.2 fL (78.0-98.0); Mean Platelet Volume 8.4 fL (7.4-10.4); Platelet Count 159 thou/uL (130-400); RBC Distribution Width 14.8 % (11.5-14.5); Red Blood Cell (RBC) Count 4.65 mill/uL (4.70-6.10); White Blood Cell (WBC) Count 4.4 thou/uL (4.8-10.8)
[2018-06-19 12:59] LABS: ALT (SGPT) 19 U/L (8-55); AST (SGOT) 18 U/L (5-34); Albumin 3.9 g/dL (3.4-4.8); Alkaline Phosphatase 136 U/L (40-150); Anion Gap 10 mmol/L (10-20); BUN (Urea Nitrogen) 20 mg/dL (8.4-25.7); Bilirubin, Total 0.4 mg/dL (0.2-1.2); Calc. Creatinine Clearance 0 mL/min (70-130); Calcium 8.9 mg/dL (7.8-10.44); Carbon Dioxide 31 mmol/L (23-31); Chloride 103 mmol/L (98-107); Estimated GFR-MDRD 90; Globulin 3.1 g/dL (2.4-3.5); Glucose 115 mg/dL (83-110); Potassium 4.1 mmol/L (3.5-5.1); Sodium 140 mmol/L (136-145)
[2018-06-19 17:14] LABS: Hemoglobin A1c 5.5 % (4.0-6.0)
== END 2018-06-19 12:15 | disposition home or self-care (01) ==
LOC: MADLAB 12:14
PROVIDERS: ATTEND Family Medicine
DX: R63.5 Abnormal weight gain (principal)
CPT/HCPCS: 36415; 80053; 83036; 85025; 85610; 85730

== ENCOUNTER 2018-07-26 09:55 | Outpatient (CLI) | payer OTHER ==
[2018-07-26 11:37] LABS: PTT 49.5 SEC (22.9-36.1)
== END 2018-07-26 09:56 | disposition home or self-care (01) ==
LOC: MADLABBHPM 09:55
PROVIDERS: ATTEND Family Medicine
DX: Z51.81 Encounter for therapeutic drug level monitoring (principal); E78.2 Mixed hyperlipidemia; K92.2 Gastrointestinal hemorrhage, unspecified; D62 Acute posthemorrhagic anemia; R63.5 Abnormal weight gain; Z95.2 Presence of prosthetic heart valve; Z79.01 Long term (current) use of anticoagulants
CPT/HCPCS: 36415; 85610; 85730

== ENCOUNTER 2018-08-02 09:19 | Outpatient (CLI) | payer OTHER ==
[2018-08-02 10:07] LABS: INR-International Normal Ratio 2.5; PTT 37.1 SEC (22.9-36.1); Prothrombin Time 26.9 SEC (12.0-14.7)
== END 2018-08-02 09:20 | disposition home or self-care (01) ==
LOC: MADLABBHPM 09:19
PROVIDERS: ATTEND Family Medicine
DX: Z51.81 Encounter for therapeutic drug level monitoring (principal); Z95.2 Presence of prosthetic heart valve; Z79.01 Long term (current) use of anticoagulants
CPT/HCPCS: 36415; 85610; 85730

== ENCOUNTER 2018-08-17 09:40 | Outpatient (CLI) | payer OTHER ==
[2018-08-17 10:36] LABS: INR-International Normal Ratio 1.1; PTT 29.8 SEC (22.9-36.1); Prothrombin Time 14.7 SEC (12.0-14.7)
== END 2018-08-17 09:41 | disposition home or self-care (01) ==
LOC: MADLABBHPM 09:40
PROVIDERS: ATTEND Family Medicine
DX: Z51.81 Encounter for therapeutic drug level monitoring (principal); Z79.01 Long term (current) use of anticoagulants
CPT/HCPCS: 36415; 85610; 85730

== ENCOUNTER 2018-08-24 09:55 | Outpatient (CLI) | payer OTHER ==
[2018-08-24 10:44] LABS: INR-International Normal Ratio 1.9
[2018-08-24 10:45] LABS: PTT 36.1 SEC (22.9-36.1)
== END 2018-08-24 09:56 | disposition home or self-care (01) ==
LOC: MADLAB 09:55
PROVIDERS: ATTEND Family Medicine
DX: Z51.81 Encounter for therapeutic drug level monitoring (principal); Z79.01 Long term (current) use of anticoagulants; Z95.2 Presence of prosthetic heart valve
CPT/HCPCS: 36415; 85610; 85730

== ENCOUNTER 2018-09-01 11:30 | Outpatient (CLI) | payer OTHER ==
[2018-09-01 11:51] LABS: INR-International Normal Ratio 2.5; PTT 38.5 SEC (22.9-36.1)
== END 2018-09-01 11:31 | disposition home or self-care (01) ==
LOC: MADLAB 11:30
PROVIDERS: ATTEND Family Medicine
DX: Z51.81 Encounter for therapeutic drug level monitoring (principal); Z95.2 Presence of prosthetic heart valve; Z79.01 Long term (current) use of anticoagulants
CPT/HCPCS: 36415; 85610; 85730

== ENCOUNTER 2018-09-11 09:52 | Outpatient (CLI) | payer OTHER ==
[2018-09-11 10:24] LABS: INR-International Normal Ratio 3.8; PTT 46.1 SEC (22.9-36.1); Prothrombin Time 37.6 SEC (12.0-14.7)
== END 2018-09-11 09:53 | disposition home or self-care (01) ==
LOC: MADLABBHPM 09:52
PROVIDERS: ATTEND Family Medicine
DX: Z51.81 Encounter for therapeutic drug level monitoring (principal); Z79.01 Long term (current) use of anticoagulants; Z95.2 Presence of prosthetic heart valve
CPT/HCPCS: 36415; 85610; 85730

== ENCOUNTER 2018-09-18 09:19 | Outpatient (CLI) | payer OTHER, MEDICARE ==
[2018-09-18 09:48] LABS: INR-International Normal Ratio 2.8; PTT 39.9 SEC (22.9-36.1); Prothrombin Time 29.6 SEC (12.0-14.7)
== END 2018-09-18 09:20 | disposition home or self-care (01) ==
LOC: MADLABBHPM 09:19
PROVIDERS: ATTEND Family Medicine
DX: Z51.81 Encounter for therapeutic drug level monitoring (principal); Z95.2 Presence of prosthetic heart valve; Z79.01 Long term (current) use of anticoagulants
CPT/HCPCS: 36415; 85610; 85730

== ENCOUNTER 2018-10-02 09:10 | Outpatient (CLI) | payer OTHER, MEDICARE ==
[2018-10-02 09:49] LABS: INR-International Normal Ratio 3.5; PTT 47.1 SEC (22.9-36.1); Prothrombin Time 35.1 SEC (12.0-14.7)
== END 2018-10-02 09:11 | disposition home or self-care (01) ==
LOC: MADLABBHPM 09:10
PROVIDERS: ATTEND Family Medicine
DX: Z51.81 Encounter for therapeutic drug level monitoring (principal); Z95.2 Presence of prosthetic heart valve; Z79.01 Long term (current) use of anticoagulants
CPT/HCPCS: 36415; 85610; 85730

== ENCOUNTER 2018-10-19 08:50 | Outpatient (CLI) | payer OTHER, MEDICARE ==
[2018-10-19 09:32] LABS: PTT 35.2 SEC (22.9-36.1); Prothrombin Time 22.4 SEC (12.0-14.7)
== END 2018-10-19 08:51 | disposition home or self-care (01) ==
LOC: MADLABBHPM 08:50
PROVIDERS: ATTEND Family Medicine
DX: Z51.81 Encounter for therapeutic drug level monitoring (principal); Z95.2 Presence of prosthetic heart valve; Z79.01 Long term (current) use of anticoagulants
CPT/HCPCS: 36415; 85610; 85730

== ENCOUNTER 2018-10-30 08:04 | Outpatient (CLI) | payer OTHER ==
[2018-10-30 08:29] LABS: PTT 39.4 SEC (22.9-36.1); Prothrombin Time 31.3 SEC (12.0-14.7)
== END 2018-10-30 08:05 | disposition home or self-care (01) ==
LOC: MADLABBHPM 08:04
PROVIDERS: ATTEND Family Medicine
DX: Z51.81 Encounter for therapeutic drug level monitoring (principal); Z79.01 Long term (current) use of anticoagulants
CPT/HCPCS: 36415; 85610; 85730

== ENCOUNTER 2018-11-09 10:38 | Outpatient (CLI) | payer OTHER ==
[2018-11-09 11:03] LABS: INR-International Normal Ratio 2.8; PTT 41.7 SEC (22.9-36.1); Prothrombin Time 29.1 SEC (12.0-14.7)
== END 2018-11-09 10:39 | disposition home or self-care (01) ==
LOC: MADLABBHPM 10:38
PROVIDERS: ATTEND Family Medicine
DX: Z51.81 Encounter for therapeutic drug level monitoring (principal); Z79.01 Long term (current) use of anticoagulants; Z95.2 Presence of prosthetic heart valve
CPT/HCPCS: 36415; 85610; 85730

== ENCOUNTER → 2018-11-17 | Outpatient (CLI) | payer OTHER ==
[2018-11-17 08:48] LABS: INR-International Normal Ratio 3.7; Prothrombin Time 36.8 SEC (12.0-14.7)
[2018-11-23 17:26] LABS: PTT 44.2 SEC (22.9-36.1)
== END ==
LOC: MADLAB 08:27 → EDSTATUS 17:24
PROVIDERS: ATTEND Family Medicine
DX: Z51.81 Encounter for therapeutic drug level monitoring (principal); Z79.01 Long term (current) use of anticoagulants
CPT/HCPCS: 36415; 85610; 85730

== ENCOUNTER 2018-11-24 08:58 | Outpatient (CLI) | payer OTHER ==
[2018-11-24 09:22] LABS: INR-International Normal Ratio 2.9; PTT 43.4 SEC (22.9-36.1); Prothrombin Time 30.6 SEC (12.0-14.7)
== END 2018-11-24 08:59 | disposition home or self-care (01) ==
LOC: MADLAB 08:58
PROVIDERS: ATTEND Family Medicine
DX: Z51.81 Encounter for therapeutic drug level monitoring (principal); Z95.2 Presence of prosthetic heart valve; Z79.01 Long term (current) use of anticoagulants
CPT/HCPCS: 36415; 85610; 85730

== ENCOUNTER 2018-12-05 09:11 | Outpatient (CLI) | payer OTHER ==
[2018-12-05 09:51] LABS: PTT 27.5 SEC (22.9-36.1); Prothrombin Time 13.6 SEC (12.0-14.7)
== END 2018-12-05 09:12 | disposition home or self-care (01) ==
LOC: MADLABBHPM 09:11
PROVIDERS: ATTEND Family Medicine
DX: Z51.81 Encounter for therapeutic drug level monitoring (principal); Z79.01 Long term (current) use of anticoagulants
CPT/HCPCS: 36415; 85610; 85730

== ENCOUNTER 2018-12-28 09:15 | Outpatient (CLI) | payer OTHER ==
[2018-12-28 10:25] LABS: INR-International Normal Ratio 2.2; Prothrombin Time 24.7 SEC (12.0-14.7)
== END 2018-12-28 09:16 | disposition home or self-care (01) ==
LOC: MADLABBHPM 09:15
PROVIDERS: ATTEND Family Medicine
DX: Z51.81 Encounter for therapeutic drug level monitoring (principal); Z79.01 Long term (current) use of anticoagulants
CPT/HCPCS: 36415; 85610; 85730

== ENCOUNTER 2019-03-20 09:34 | Outpatient (CLI) | payer OTHER ==
[2019-03-20 10:15] LABS: INR-International Normal Ratio 1.5; Prothrombin Time 18.2 SEC (12.0-14.7)
[2019-03-20 10:16] LABS: PTT 32.1 SEC (22.9-36.1)
== END 2019-03-20 09:35 | disposition home or self-care (01) ==
LOC: MADLABBHPM 09:34
PROVIDERS: ATTEND Family Medicine
DX: Z51.81 Encounter for therapeutic drug level monitoring (principal); Z95.2 Presence of prosthetic heart valve; Z79.01 Long term (current) use of anticoagulants
CPT/HCPCS: 36415; 85610; 85730